=== PATIENT | male | born 1950 | race Caucasian/White ===

== ENCOUNTER 2016-08-03 17:26 | Inpatient (IN) | payer BC, OTHER ==
[~2016-08-03] VITALS: Ht 182.9 cm; Wt 157.9 kg
[~2016-08-03 17:26] MED LIST: ADVAIR 500/501 DISK IH; ADVAIR HFA120 INHAL1 IH; ADVAIR HFA120 INHALA IH; ALLOPURINOL300 MG PO; AMBIEN5 MG PO; ATARAX,VISTARIL25 MG PO; ATORVASTATIN CA20 MG PO; BACTRIM,SEPT1 TABLET PO; BUMETANIDE1 MG PO; BUMETANIDE2 MG PO; BUMEX2 MG PO; CARDIZEM CD,CA180 MG PO; CARDIZEM CD360 MG PO; CARDIZEM120 MG PO; CARDIZEM90 MG PO; CARTIA XT180 MG PO; COLACE100 MG PO; COUMADIN1 MG PO; COUMADIN5 MG PO; COUMADIN6 MG PO; COUMADIN7.5 MG PO; CYANOCOBAL1000 MCG/2 IM; DALIRESP500 MCG PO; DECARA50000 UNIT PO; DOCUSATE SODIU100 MG PO; ERGOCALCIF50000 UNIT PO; HYDROCODON-ACE1 EAC8 PO; K-DUR20 MEQ PO; K-TAB10 MEQ PO; KLOR-CON M2020 MEQ PO; LASIX40 MG PO; LASIX80 MG PO; LIPITOR20 MG PO; LOPRESSOR100 M1 PO; LOPRESSOR25 MG PO; LOVENOX40 MG/0.4 SC; METOLAZONE5 MG PO; METOPROLOL TART25 MG PO; MILK OF MAGNESI10 ML PO; NICODERM CQ1 EAC1 TD; NICODERM CQ1 EAC2 TD; OMEPRAZOLE20 MG PO; OXYCODONE-APAP1 EAC6 PO; PANTOPRAZOLE SO40 MG PO; PERCOCET 7.51 TABLET PO; POLYETHYLENE GL17 GM PO; PREDNISONE10 MG PO; PREDNISONE20 MG PO; PROTONIX40 MG PO; RESTORIL15 MG PO; ROXICET 5-3251 EACH PO; SENNA8.6 MG PO; SENOKOT S,PE1 TABLET PO; SPIRIVA1 INHALATI IH; SPIRONOLACTONE50 MG PO; TEMAZEPAM15 MG PO; THEO-24 100 MG100 MG PO; THEO-24200 MG PO; THEOCHRON200 MG PO; TYLENOL REGULA325 MG PO; XANAX0.25 MG PO; XANAX0.5 MG PO; XARELTO20 MG PO; XOPENEX1.25 MG/0.; XOPENEX1.25 MG/3 IH; Xanax PO; ZYLOPRIM150 MG PO; ZYLOPRIM300 MG PO
[2016-08-03 17:46] LABS: BASE EXCESS 11.3 mEq/L (-3 to +3); BICARBONATE 39.2 mEq/L (22-26); CARBOXY HGB 2.4 % (0-5); COMMENTS - BLOOD GASES A+C+; DEVICE NRBM; FI02 100 %; METHEMOGLOBIN 1.2 % (0-1.5); O2 FLOW 15 L/MIN; PCO2 71 mm Hg (35-45); PO2 95 mm Hg (80-100); SITE LR; pH 7.35 (7.35-7.45)
[2016-08-03 18:17] LABS: HEMATOCRIT 38.1 % (38.0-50.0); MCH 21.4 PG (29.0-34.0); MCHC 26.5 G/DL (30.0-36.0); MCV 80.7 FL (86-99); MEAN PLAT.VOLUME 9.7 uM^3 (9.0-12.4); PLATELET COUNT 245 K/uL (156-360); RBC DIS.WIDTH-CV 20.5 % (11.8-14.6); RBC DIS.WIDTH-SD 58.2 % (39-53); RED BLOOD COUNT 4.72 M/uL (4.00-5.50); WHITE BLOOD COUNT 13.4 K/uL (4.1-10.2)
[2016-08-03 18:29] LABS: CHLORIDE 90 mEq/L (99-109); POTASSIUM 3.4 mEq/L (3.7-5.4); SODIUM 139 mEq/L (136-147)
[2016-08-03 18:31] LABS: GLUCOSE 136 mg/dL (70-99)
[2016-08-03 18:33] LABS: ANION GAP 16 MEQ/L (2-14)
[2016-08-03 18:35] LABS: GFR ESTIMATE (CALCULATED) 32 mL/min/
[2016-08-03 18:36] LABS: UREA NITROGEN (BUN) 44 mg/dL (9-23)
[2016-08-03 18:38] LABS: TROP-I INTERPRETATION NEGATIVE; TROPONIN-I 0.03 ng/mL (0.0-0.30)
[2016-08-03] MEDS ORDERED: K-DUR20 MEQ PO (21:59)
[2016-08-03] MEDS ORDERED: ERGOCALCIF50000 UNIT PO (22:03)
[2016-08-03] MEDS ORDERED: CARDIZEM CD,CA240 MG PO (22:09)
[2016-08-03] MEDS ORDERED: COUMADIN5 MG PO ×2 (22:11→22:14)
[2016-08-03] MEDS ORDERED: TEMAZEPAM15 MG PO (22:15)
[2016-08-03 22:50] LABS: ADD MIUA? NO; BILIRUBIN NEGATIVE; BLOOD NEGATIVE; COLOR YELLOW ((YELLOW)); GLUCOSE (STRIP) NEGATIVE; KETONES NEGATIVE; LEUKOCYTES NEGATIVE; NITRITE NEGATIVE; PROTEIN (STRIP) 30; SPECIFIC GRAVITY 1.012 (1.000-1.030)
[2016-08-03 23:11] LABS: INTER. NORMALIZED RATIO 1.5; PROTHROMBIN TIME 15.2 (9.2-11.2)
[2016-08-04] VITALS (7 sets, daily range): BP systolic 99–118; BP diastolic 56–71
[2016-08-04 06:39] LABS: INTER. NORMALIZED RATIO 1.4; PROTHROMBIN TIME 14.1 (9.2-11.2)
[2016-08-04 06:56] LABS: ANION GAP 11 MEQ/L (2-14); CHLORIDE 88 MEQ/L (99-109); GFR ESTIMATE (CALCULATED) 34 mL/min/; GLUCOSE 194 mg/dL (70-99); POTASSIUM 3.3 MEQ/L (3.7-5.4); SAMPLE HEMOLYSIS CHECK 0; SAMPLE ICTERIC CHECK 0; SAMPLE LIPEMIA CHECK 0; SODIUM 135 MEQ/L (136-147); UREA NITROGEN (BUN) 43 mg/dL (9-23)
[2016-08-04 07:01] LABS: Estimated Average Glucose 120 mg/dL (70-123); HEMOGLOBIN A1c (GLYCOHEMOGLOB) 5.8 % HGB (Below 5.7)
[2016-08-04 07:07] LABS: EOSINOPHIL (%) 0 % (0-5); HEMATOCRIT 35.4 % (38.0-50.0); IMMATURE GRANULOCYTE (%) 0.1 % (0.0-0.7); LYMPHOCYTE COUNT 0.3 K/uL (1.0-2.8); MCH 20.9 PG (29.0-34.0); MCV 80.3 FL (86-99); MEAN PLAT.VOLUME 9.8 uM^3 (9.0-12.4); MONOCYTE (%) 1.2 % (3-12); MONOCYTE COUNT 0.1 K/uL (0-0.8); NEUTROPHIL (%) 95.5 % (45-76); NEUTROPHIL COUNT 8.1 K/uL (1.8-6.4); PLATELET COUNT 183 K/uL (156-360); RBC DIS.WIDTH-CV 20.1 % (11.8-14.6); RBC DIS.WIDTH-SD 58.1 % (39-53); RED BLOOD COUNT 4.41 M/uL (4.00-5.50)
[2016-08-04 07:10] LABS: WHITE BLOOD COUNT 8.5 K/uL (4.1-10.2)
[2016-08-04 08:19] LABS: HEMATOLOGY COMMENT 1 SMEAR COMPATIBLE; PLAT.SUFFICIENCY ADEQUATE; USER ID CL
[2016-08-05 03:50] VITALS: BP 122/63
[2016-08-05 06:47] LABS: INTER. NORMALIZED RATIO 1.4; PROTHROMBIN TIME 14.4 (9.2-11.2)
[2016-08-05 09:00] VITALS: BP 112/68
[2016-08-05 13:18] VITALS: BP 120/59
[2016-08-05 16:00] VITALS: BP 124/61
[2016-08-05 19:09] VITALS: BP 114/75
[2016-08-06] VITALS (8 sets, daily range): BP systolic 98–138; BP diastolic 55–79
[2016-08-06 06:36] LABS: INTER. NORMALIZED RATIO 1.4; PROTHROMBIN TIME 14.9 (9.2-11.2)
[2016-08-06 19:01] LABS: ANION GAP 11 MEQ/L (2-14); CHLORIDE 88 MEQ/L (99-109); GFR ESTIMATE (CALCULATED) 34 mL/min/; GLUCOSE 161 mg/dL (70-99); POTASSIUM 3.3 MEQ/L (3.7-5.4); SAMPLE HEMOLYSIS CHECK 0; SAMPLE ICTERIC CHECK 0; SAMPLE LIPEMIA CHECK 0; SODIUM 135 MEQ/L (136-147); UREA NITROGEN (BUN) 48 mg/dL (9-23)
[2016-08-07 03:51] VITALS: BP 116/60
[2016-08-07 07:22] LABS: INTER. NORMALIZED RATIO 1.5; PROTHROMBIN TIME 15.9 (9.2-11.2)
[2016-08-07 07:31] LABS: ANION GAP 10 MEQ/L (2-14); CHLORIDE 89 MEQ/L (99-109); GFR ESTIMATE (CALCULATED) 38 mL/min/; GLUCOSE 158 mg/dL (70-99); POTASSIUM 2.9 MEQ/L (3.7-5.4); SAMPLE HEMOLYSIS CHECK 0; SAMPLE ICTERIC CHECK 0; SAMPLE LIPEMIA CHECK 0; SODIUM 138 MEQ/L (136-147); UREA NITROGEN (BUN) 49 mg/dL (9-23)
[2016-08-07 07:48] LABS: EOSINOPHIL (%) 7.1 % (0-5); EOSINOPHIL COUNT 0.8 K/uL (0-0.3); HEMATOCRIT 33.3 % (38.0-50.0); IMMATURE GRANULOCYTE (%) 0.3 % (0.0-0.7); MCH 21.4 PG (29.0-34.0); MCHC 26.4 G/DL (30.0-36.0); MEAN PLAT.VOLUME 9.6 uM^3 (9.0-12.4); MONOCYTE (%) 3.1 % (3-12); MONOCYTE COUNT 0.4 K/uL (0-0.8); NEUTROPHIL (%) 81.1 % (45-76); NEUTROPHIL COUNT 9.3 K/uL (1.8-6.4); PLATELET COUNT 171 K/uL (156-360); RBC DIS.WIDTH-CV 20.3 % (11.8-14.6); RED BLOOD COUNT 4.11 M/uL (4.00-5.50); WHITE BLOOD COUNT 11.5 K/uL (4.1-10.2)
[2016-08-07 07:50] VITALS: BP 120/63
[2016-08-07 08:10] LABS: HEMATOLOGY COMMENT 1 SMEAR COMPATIBLE; USER ID CCL
[2016-08-07 11:29] VITALS: BP 114/69
[2016-08-07 15:49] VITALS: BP 120/62
[2016-08-07 19:21] VITALS: BP 126/74
[2016-08-07 23:04] VITALS: BP 115/66
[2016-08-08 02:54] VITALS: BP 116/55
[2016-08-08 06:32] LABS: HEMATOCRIT 34.7 % (38.0-50.0); MCH 20.9 PG (29.0-34.0); MCHC 25.9 G/DL (30.0-36.0); MCV 80.7 FL (86-99); MEAN PLAT.VOLUME 9.7 uM^3 (9.0-12.4); PLATELET COUNT 168 K/uL (156-360); RBC DIS.WIDTH-CV 20.1 % (11.8-14.6); RBC DIS.WIDTH-SD 58.3 % (39-53); WHITE BLOOD COUNT 12.9 K/uL (4.1-10.2)
[2016-08-08 06:45] LABS: INTER. NORMALIZED RATIO 1.7; PROTHROMBIN TIME 17.1 (9.2-11.2)
[2016-08-08 06:58] LABS: ANION GAP ND MEQ/L (2-14); CHLORIDE 89 MEQ/L (99-109); GFR ESTIMATE (CALCULATED) 41 mL/min/; SAMPLE HEMOLYSIS CHECK 0; SAMPLE ICTERIC CHECK 0; SAMPLE LIPEMIA CHECK 0; SODIUM 140 MEQ/L (136-147); UREA NITROGEN (BUN) 49 mg/dL (9-23)
[2016-08-08 06:59] LABS: CARBON DIOXIDE (BICARBONATE) > 40.0 MEQ/L (20-31); GLUCOSE 109 mg/dL (70-99); POTASSIUM 3.7 MEQ/L (3.7-5.4)
[2016-08-08 07:36] LABS: HEMATOLOGY COMMENT 1 SMEAR COMPATIBLE; IMMATURE GRANULOCYTE (%) 0.3 % (0.0-0.7); LYMPHOCYTE COUNT 0.8 K/uL (1.0-2.8); MONOCYTE (%) 3.6 % (3-12); MONOCYTE COUNT 0.5 K/uL (0-0.8); NEUTROPHIL (%) 81.6 % (45-76); NEUTROPHIL COUNT 10.5 K/uL (1.8-6.4); USER ID CCL
[2016-08-08 08:12] VITALS: BP 113/62
[2016-08-08 16:30] VITALS: BP 138/79
[2016-08-08 19:01] VITALS: BP 128/68
[2016-08-08 22:52] VITALS: BP 121/75
[2016-08-09 03:05] VITALS: BP 107/65
[2016-08-09 07:31] LABS: INTER. NORMALIZED RATIO 1.8; PROTHROMBIN TIME 18.4 (9.2-11.2)
[2016-08-09 07:41] VITALS: BP 108/68
[2016-08-09 16:05] VITALS: BP 113/72
[2016-08-09 18:28] LABS: HEMATOCRIT 34.5 % (38.0-50.0); MCH 21.3 PG (29.0-34.0); MCHC 26.4 G/DL (30.0-36.0); MCV 80.6 FL (86-99); MEAN PLAT.VOLUME 9.4 uM^3 (9.0-12.4); PLATELET COUNT 143 K/uL (156-360); RBC DIS.WIDTH-CV 20.2 % (11.8-14.6); RBC DIS.WIDTH-SD 59.3 % (39-53); RED BLOOD COUNT 4.28 M/uL (4.00-5.50); WHITE BLOOD COUNT 15.1 K/uL (4.1-10.2)
[2016-08-09 18:29] VITALS: BP 123/66
[2016-08-09 18:50] LABS: ANION GAP 9 MEQ/L (2-14); CHLORIDE 87 MEQ/L (99-109); GFR ESTIMATE (CALCULATED) 43 mL/min/; POTASSIUM 3.2 MEQ/L (3.7-5.4); SAMPLE HEMOLYSIS CHECK 0; SAMPLE ICTERIC CHECK 0; SAMPLE LIPEMIA CHECK 0; SODIUM 133 MEQ/L (136-147); UREA NITROGEN (BUN) 47 mg/dL (9-23)
[2016-08-09 18:58] LABS: GLUCOSE 228 mg/dL (70-99)
[2016-08-09 23:01] VITALS: BP 105/62
[2016-08-10 03:48] VITALS: BP 118/59
[2016-08-10 06:34] LABS: INTER. NORMALIZED RATIO 1.8; PROTHROMBIN TIME 18.2 (9.2-11.2)
[2016-08-10 09:00] VITALS: BP 126/60
[2016-08-10 12:00] VITALS: BP 126/67
[2016-08-10 16:00] VITALS: BP 126/60
[2016-08-10 19:35] VITALS: BP 111/59
[2016-08-10 22:26] VITALS: BP 106/62
[2016-08-11 02:41] VITALS: BP 109/57
[2016-08-11 07:28] LABS: INTER. NORMALIZED RATIO 1.7; PROTHROMBIN TIME 17.4 (9.2-11.2)
[2016-08-11 08:24] VITALS: BP 116/55
[2016-08-11 11:10] VITALS: BP 118/61; BP 147/93
[2016-08-11 15:25] VITALS: BP 117/64
[2016-08-12 00:12] VITALS: BP 123/87
[2016-08-12 03:55] VITALS: BP 124/74
[2016-08-12 07:44] LABS: HEMATOCRIT 34.3 % (38.0-50.0); MCH 21.2 PG (29.0-34.0); MCHC 26.2 G/DL (30.0-36.0); MCV 80.9 FL (86-99); MEAN PLAT.VOLUME 9.5 uM^3 (9.0-12.4); NRBC (%) 0.1 /100 WBC (0-0); PLATELET COUNT 161 K/uL (156-360); RBC DIS.WIDTH-CV 20.2 % (11.8-14.6); RBC DIS.WIDTH-SD 59.9 % (39-53); RED BLOOD COUNT 4.24 M/uL (4.00-5.50); WHITE BLOOD COUNT 12.2 K/uL (4.1-10.2)
[2016-08-12 07:51] LABS: EOSINOPHIL (%) 0.5 % (0-5); EOSINOPHIL COUNT 0.1 K/uL (0-0.3); IMMATURE GRANULOCYTE (%) 0.4 % (0.0-0.7); IMMATURE GRANULOCYTE COUNT 0.1 K/uL; LYMPHOCYTE COUNT 1.2 K/uL (1.0-2.8); MONOCYTE COUNT 0.5 K/uL (0-0.8); NEUTROPHIL (%) 85.4 % (45-76); NEUTROPHIL COUNT 10.5 K/uL (1.8-6.4)
[2016-08-12 07:55] LABS: INTER. NORMALIZED RATIO 1.9; PROTHROMBIN TIME 20.2 (9.2-11.2)
[2016-08-12 08:09] VITALS: BP 110/63
[2016-08-12 08:25] LABS: ANION GAP ND MEQ/L (2-14); CHLORIDE 87 MEQ/L (99-109); GFR ESTIMATE (CALCULATED) 46 mL/min/; GLUCOSE 140 mg/dL (70-99); POTASSIUM 3.3 MEQ/L (3.7-5.4); SAMPLE HEMOLYSIS CHECK 0; SAMPLE ICTERIC CHECK 0; SAMPLE LIPEMIA CHECK 0; SODIUM 138 MEQ/L (136-147); UREA NITROGEN (BUN) 48 mg/dL (9-23)
[2016-08-12 08:29] LABS: CARBON DIOXIDE (BICARBONATE) > 40.0 MEQ/L (20-31)
[2016-08-12 15:32] VITALS: BP 122/71
[2016-08-12 23:18] VITALS: BP 121/68
[2016-08-13 05:58] LABS: INTER. NORMALIZED RATIO 1.9; PROTHROMBIN TIME 19.5 (9.2-11.2)
[2016-08-13 08:03] VITALS: BP 106/57
[2016-08-13 11:33] LABS: HEMATOCRIT 36.6 % (38.0-50.0); MCH 21.8 PG (29.0-34.0); MCHC 26.5 G/DL (30.0-36.0); MCV 82.2 FL (86-99); MEAN PLAT.VOLUME 9.7 uM^3 (9.0-12.4); RBC DIS.WIDTH-CV 20.4 % (11.8-14.6); RBC DIS.WIDTH-SD 61.6 % (39-53); RED BLOOD COUNT 4.45 M/uL (4.00-5.50)
[2016-08-13 11:36] LABS: PLATELET COUNT 211 K/uL (156-360)
[2016-08-13 12:15] LABS: ALKALINE PHOSPHATASE 98 IU/L (3-129); AMYLASE 68 IU/L (1-118); ANION GAP ND MEQ/L (2-14); CHLORIDE 85 MEQ/L (99-109); GFR ESTIMATE (CALCULATED) 54 mL/min/; GLUCOSE 146 mg/dL (70-99); LIPASE 107 U/L (1.0-51.0); POTASSIUM 3.3 MEQ/L (3.7-5.4); SAMPLE HEMOLYSIS CHECK 0; SAMPLE ICTERIC CHECK 0; SAMPLE LIPEMIA CHECK 0; TOTAL BILIRUBIN 1.1 MG/DL (0.0-1.0); UREA NITROGEN (BUN) 48 mg/dL (9-23)
[2016-08-13 12:30] LABS: CARBON DIOXIDE (BICARBONATE) > 40.0 MEQ/L (20-31); SODIUM 145 MEQ/L (136-147)
[2016-08-13 12:50] LABS: EOSINOPHIL (%) 1.9 % (0-5); EOSINOPHIL COUNT 0.3 K/uL (0-0.3); HEMATOLOGY COMMENT 1 SMEAR COMPATIBLE; IMMATURE GRANULOCYTE (%) 0.2 % (0.0-0.7); MONOCYTE (%) 3.7 % (3-12); MONOCYTE COUNT 0.6 K/uL (0-0.8); NEUTROPHIL (%) 81.8 % (45-76); NEUTROPHIL COUNT 13.1 K/uL (1.8-6.4); PLAT.SUFFICIENCY ADEQUATE; USER ID STC
[2016-08-13 17:46] VITALS: BP 140/72
[2016-08-14 06:57] LABS: PROTHROMBIN TIME 20.8 (9.2-11.2)
[2016-08-14 07:45] VITALS: BP 116/68
[2016-08-14 11:28] VITALS: BP 131/73
[2016-08-14 16:17] VITALS: BP 136/80
[2016-08-14 23:09] VITALS: BP 127/72
[2016-08-15 09:00] LABS: HEMATOCRIT 36.8 % (38.0-50.0); MCH 21.4 PG (29.0-34.0); MCHC 26.1 G/DL (30.0-36.0); MCV 82.1 FL (86-99); MEAN PLAT.VOLUME 9.7 uM^3 (9.0-12.4); PLATELET COUNT 175 K/uL (156-360); RBC DIS.WIDTH-CV 21.1 % (11.8-14.6); RBC DIS.WIDTH-SD 62.5 % (39-53); RED BLOOD COUNT 4.48 M/uL (4.00-5.50); WHITE BLOOD COUNT 15.7 K/uL (4.1-10.2)
[2016-08-15 09:15] LABS: INTER. NORMALIZED RATIO 2.5; PROTHROMBIN TIME 26.2 (9.2-11.2)
[2016-08-15 09:18] VITALS: BP 126/82
[2016-08-15 09:39] LABS: ANION GAP ND MEQ/L (2-14); CHLORIDE 87 MEQ/L (99-109); GFR ESTIMATE (CALCULATED) 43 mL/min/; GLUCOSE 129 mg/dL (70-99); POTASSIUM 3.1 MEQ/L (3.7-5.4); SAMPLE HEMOLYSIS CHECK 0; SAMPLE ICTERIC CHECK 0; SAMPLE LIPEMIA CHECK 0; SODIUM 142 MEQ/L (136-147); UREA NITROGEN (BUN) 63 mg/dL (9-23)
[2016-08-15 09:42] LABS: CARBON DIOXIDE (BICARBONATE) > 40.0 MEQ/L (20-31)
[2016-08-15 10:34] LABS: EOSINOPHIL COUNT 0.8 K/uL (0-0.3); HEMATOLOGY COMMENT 1 SMEAR COMPATIBLE; IMMATURE GRANULOCYTE (%) 0.4 % (0.0-0.7); IMMATURE GRANULOCYTE COUNT 0.1 K/uL; LYMPHOCYTE COUNT 0.8 K/uL (1.0-2.8); MONOCYTE (%) 7.7 % (3-12); MONOCYTE COUNT 1.2 K/uL (0-0.8); NEUTROPHIL (%) 81.5 % (45-76); NEUTROPHIL COUNT 12.8 K/uL (1.8-6.4); PLAT.SUFFICIENCY ADEQUATE
[2016-08-15 16:30] VITALS: BP 129/73
[2016-08-15 23:00] VITALS: BP 112/70
[2016-08-16 03:00] VITALS: BP 112/74
[2016-08-16 06:59] LABS: INTER. NORMALIZED RATIO 3.9
[2016-08-16 07:06] LABS: ANION GAP 9 MEQ/L (2-14); CHLORIDE 86 MEQ/L (99-109); GFR ESTIMATE (CALCULATED) 36 mL/min/; GLUCOSE 136 mg/dL (70-99); POTASSIUM 3.5 MEQ/L (3.7-5.4); SAMPLE HEMOLYSIS CHECK 0; SAMPLE ICTERIC CHECK 0; SAMPLE LIPEMIA CHECK 0; SODIUM 135 MEQ/L (136-147); UREA NITROGEN (BUN) 66 mg/dL (9-23)
[2016-08-16 07:11] VITALS: BP 105/64
[2016-08-16 15:27] VITALS: BP 103/61
[2016-08-16 16:28] LABS: IRON 42 MCG/DL (35-150); URIC ACID 11.4 mg/dL (3.1-9.2)
[2016-08-16 22:53] VITALS: BP 101/64
[2016-08-17 04:33] LABS: CHLORIDE 87 mEq/L (99-109); POTASSIUM 3.4 mEq/L (3.7-5.4); SODIUM 134 mEq/L (136-147)
[2016-08-17 04:35] LABS: GLUCOSE 127 mg/dL (70-99)
[2016-08-17 04:37] LABS: ANION GAP 9 MEQ/L (2-14)
[2016-08-17 04:39] LABS: GFR ESTIMATE (CALCULATED) 31 mL/min/
[2016-08-17 04:40] LABS: UREA NITROGEN (BUN) 72 mg/dL (9-23)
[2016-08-17 04:42] LABS: URIC ACID 12.1 mg/dL (3.1-9.2)
[2016-08-17 04:43] LABS: INTER. NORMALIZED RATIO 5.3; PROTHROMBIN TIME 56.8 (9.2-11.2)
[2016-08-17 07:27] VITALS: BP 118/61
[2016-08-17 08:41] LABS: INTACT PARATHYROID HORMONE 106 pg/mL (10-69)
[2016-08-17 15:38] VITALS: BP 104/57
[2016-08-17 23:39] VITALS: BP 112/63
[2016-08-18 06:40] LABS: PROTHROMBIN TIME 42.2 (9.2-11.2)
[2016-08-18 06:43] LABS: ANION GAP ND MEQ/L (2-14); CHLORIDE 85 MEQ/L (99-109); GFR ESTIMATE (CALCULATED) 38 mL/min/; GLUCOSE 103 mg/dL (70-99); SAMPLE HEMOLYSIS CHECK 0; SAMPLE ICTERIC CHECK 0; SAMPLE LIPEMIA CHECK 0; SODIUM 139 MEQ/L (136-147); UREA NITROGEN (BUN) 55 mg/dL (9-23)
[2016-08-18 06:51] LABS: POTASSIUM 2.7 MEQ/L (3.7-5.4)
[2016-08-18 06:52] LABS: CARBON DIOXIDE (BICARBONATE) > 40.0 MEQ/L (20-31)
[2016-08-18 07:12] VITALS: BP 128/70
[2016-08-18 11:41] VITALS: BP 138/60
[2016-08-18 15:08] VITALS: BP 109/65
[2016-08-18 23:08] VITALS: BP 130/70
[2016-08-19 05:30] LABS: HEMATOCRIT 33.5 % (38.0-50.0); MCH 22.4 PG (29.0-34.0); MCHC 27.8 G/DL (30.0-36.0); MCV 80.7 FL (86-99); MEAN PLAT.VOLUME 10.2 uM^3 (9.0-12.4); PLATELET COUNT 184 K/uL (156-360); RBC DIS.WIDTH-CV 21.7 % (11.8-14.6); RBC DIS.WIDTH-SD 62.3 % (39-53); RED BLOOD COUNT 4.15 M/uL (4.00-5.50); WHITE BLOOD COUNT 13.1 K/uL (4.1-10.2)
[2016-08-19 06:08] LABS: ANION GAP 8 MEQ/L (2-14); CHLORIDE 87 MEQ/L (99-109); GFR ESTIMATE (CALCULATED) 38 mL/min/; GLUCOSE 108 mg/dL (70-99); SAMPLE HEMOLYSIS CHECK 0; SAMPLE ICTERIC CHECK 0; SAMPLE LIPEMIA CHECK 0; SODIUM 133 MEQ/L (136-147); UREA NITROGEN (BUN) 52 mg/dL (9-23); URIC ACID 12.2 mg/dL (3.1-9.2)
[2016-08-19 06:19] LABS: POTASSIUM 3.5 MEQ/L (3.7-5.4)
[2016-08-19 06:23] LABS: INTER. NORMALIZED RATIO 2.9; PROTHROMBIN TIME 30.3 (9.2-11.2)
[2016-08-19 07:26] VITALS: BP 103/58
[2016-08-19] MEDS ORDERED: SENNA LAX8.6 MG PO (09:23)
[2016-08-19] MEDS ORDERED: BISAC-EVAC10 MG PR (09:23)
[2016-08-19] MEDS ORDERED: ENDOCET 5-3251 EACH PO (09:23)
[2016-08-19] MEDS ORDERED: DOCUSATE SODIU100 MG PO (09:23)
[2016-08-19] MEDS ORDERED: K-DUR20 MEQ PO (09:23)
[2016-08-19] MEDS ORDERED: ALLOPURINOL100 MG PO (09:23)
[2016-08-19] MEDS ORDERED: COUMADIN1 MG PO (09:23)
[2016-08-19] MEDS ORDERED: ZOLPIDEM TARTRAT5 MG PO (09:23)
[2016-08-19] MEDS ORDERED: DUONEB 2.5-0.5 M3 ML AEROSOL (09:23)
[2016-08-19] MEDS ORDERED: SPIRIVA RESPIMAT4 GM IH (09:23)
[2016-08-19] MEDS ORDERED: PREDNISONE5 MG PO (09:23)
[2016-08-19] MEDS ORDERED: TYLENOL REGULA325 MG PO (09:23)
== END 2016-08-19 12:58 | DRG 190 ==
LOC: EME → EDBD 17:26 → EDOF 22:19 → 4EAST 22:19 → 5EAST 08-06 20:13
PROVIDERS: Emergency Medicine; Internal Medicine; Internal Medicine Nephrology
PROC: 5A09458 Assistance with Respiratory Ventilation, 24-96 Consecutive Hours, Intermittent Positive Airway Pressure (ICD-10-PCS; 2016-08-08)
PROC: 5A09457 Assistance with Respiratory Ventilation, 24-96 Consecutive Hours, Continuous Positive Airway Pressure (ICD-10-PCS; 2016-08-11)
PROC: 0HDLXZZ Extraction of Left Lower Leg Skin, External Approach (ICD-10-PCS; principal; 2016-08-16)
DX: J44.1 Chronic obstructive pulmonary disease with (acute) exacerbation (principal); J18.9 Pneumonia, unspecified organism; J96.91 Respiratory failure, unspecified with hypoxia; I50.32 Chronic diastolic (congestive) heart failure; Z68.43 Body mass index [BMI] 50.0-59.9, adult; N17.9 Acute kidney failure, unspecified; E55.9 Vitamin D deficiency, unspecified; E53.8 Deficiency of other specified B group vitamins; W18.30XA Fall on same level, unspecified, initial encounter; I87.8 Other specified disorders of veins; E66.01 Morbid (severe) obesity due to excess calories; F32.9 Major depressive disorder, single episode, unspecified; Z99.81 Dependence on supplemental oxygen; I48.2 Chronic atrial fibrillation; N18.9 Chronic kidney disease, unspecified; Z79.01 Long term (current) use of anticoagulants; K21.9 Gastro-esophageal reflux disease without esophagitis; E78.5 Hyperlipidemia, unspecified; I12.9 Hypertensive chronic kidney disease with stage 1 through stage 4 chronic kidney disease, or unspecified chronic kidney disease; I87.2 Venous insufficiency (chronic) (peripheral); F41.9 Anxiety disorder, unspecified; M10.9 Gout, unspecified; M25.50 Pain in unspecified joint; G47.33 Obstructive sleep apnea (adult) (pediatric); E87.6 Hypokalemia; R26.2 Difficulty in walking, not elsewhere classified; T45.515A Adverse effect of anticoagulants, initial encounter
CPT/HCPCS: 36600; 71010; 71020; 74020; 76705; 80048; 80053; 80069; 81003; 82150; 82306; 82607; 82803; 83036; 83540; 83690; 83970; 84145 90; 84439; 84443; 84466; 84484; 84550; 85025; 85027; 85610; 87040; 87086; 93005; 93970; 94640; 94640 76; 94644; 94660; 94760; 94799; 97530 GO; 97530 GP; 99202; 99281; 99285; C9113; J0456; J0696; J1940; J2405; J2765; J2930; J3480; J7050; J7512; J7644; Q0177

== ENCOUNTER 2016-09-15 07:36 | Inpatient (IN) | payer BC, OTHER ==
[~2016-09-15] VITALS: Ht 182.9 cm; Wt 155.4 kg
[~2016-09-15 07:36] MED LIST changes: +ALLOPURINOL100 MG PO; +BISAC-EVAC10 MG PR; +CARDIZEM CD,CA240 MG PO; +DUONEB 2.5-0.5 M3 ML AEROSOL; +ENDOCET 5-3251 EACH PO; +PREDNISONE5 MG PO; +SENNA LAX8.6 MG PO; +SPIRIVA RESPIMAT4 GM IH; +ZOLPIDEM TARTRAT5 MG PO
[2016-09-15 08:21] LABS: CHLORIDE 96 mEq/L (99-109); SODIUM 139 mEq/L (136-147)
[2016-09-15 08:22] LABS: GLUCOSE 126 mg/dL (70-99); INTER. NORMALIZED RATIO 1.7; PTT 34.8 (25-32)
[2016-09-15 08:24] LABS: ANION GAP 12 MEQ/L (2-14)
[2016-09-15 08:26] LABS: GFR ESTIMATE (CALCULATED) > 59 mL/min/
[2016-09-15 08:27] LABS: UREA NITROGEN (BUN) 16 mg/dL (9-23)
[2016-09-15 08:32] LABS: HEMATOCRIT 36.4 % (38.0-50.0); MCH 21.5 PG (29.0-34.0); MCHC 26.1 G/DL (30.0-36.0); MCV 82.4 FL (86-99); MEAN PLAT.VOLUME 8.8 uM^3 (9.0-12.4); NRBC (%) 0.2 /100 WBC (0-0); RBC DIS.WIDTH-SD 65.5 % (39-53); RED BLOOD COUNT 4.42 M/uL (4.00-5.50)
[2016-09-15 08:35] LABS: TROP-I INTERPRETATION NEGATIVE; TROPONIN-I 0.09 ng/mL (0.0-0.30)
[2016-09-15 08:44] LABS: PROTHROMBIN TIME 18.1 (9.2-11.2)
[2016-09-15 08:47] LABS: PLATELET COUNT 283 K/uL (156-360); WHITE BLOOD COUNT 24.8 K/uL (4.1-10.2)
[2016-09-15 09:11] LABS: BASE EXCESS 9.8 mEq/L (-3 to +3); BICARBONATE 36.1 mEq/L (22-26); CARBOXY HGB 2.7 % (0-5); COMMENTS - BLOOD GASES NEG A+C+; DEVICE HFNC; METHEMOGLOBIN 1.5 % (0-1.5); O2 FLOW 15 L/MIN; PCO2 57 mm Hg (35-45); PO2 75 mm Hg (80-100); SITE RR; pH 7.41 (7.35-7.45)
[2016-09-15 09:12] LABS: TOTAL RESP RATE 22 resp/min
[2016-09-15 10:26] LABS: BASOPHIL COUNT 0.1 K/uL (0-0.1); EOSINOPHIL (%) 0.3 % (0-5); EOSINOPHIL COUNT 0.1 K/uL (0-0.3); IMMATURE GRANULOCYTE (%) 0.7 % (0.0-0.7); IMMATURE GRANULOCYTE COUNT 0.2 K/uL; INSTRUMENT ABS NEUTROPHIL CT 21.9 K/uL; LYMPHOCYTE COUNT 0.9 K/uL (1.0-2.8); MONOCYTE (%) 6.8 % (3-12); MONOCYTE COUNT 1.7 K/uL (0-0.8); NEUTROPHIL (%) 88.4 % (45-76); NEUTROPHIL COUNT 21.9 K/uL (1.8-6.4)
[2016-09-15 11:08] LABS: ADD MIUA? NO; BILIRUBIN NEGATIVE; BLOOD NEGATIVE; COLOR YELLOW ((YELLOW)); GLUCOSE (STRIP) NEGATIVE; KETONES NEGATIVE; LEUKOCYTES NEGATIVE; NITRITE NEGATIVE; PROTEIN (STRIP) NEGATIVE; UROBILINOGEN 0.2 MG/DL (0.2-1.0)
[2016-09-15] MEDS ORDERED: WARFARIN SODIUM5 MG PO (11:18)
[2016-09-15] MEDS ORDERED: MILK OF MAGN PO (11:21)
[2016-09-15] MEDS ORDERED: ENEMA133 M2 PR (11:21)
[2016-09-15] MEDS ORDERED: PRILOSEC20 MG PO (11:22)
[2016-09-15] MEDS ORDERED: AQUAPHOR W-NAT50 GM TP (11:23)
[2016-09-15] MEDS ORDERED: MIRALAX17 GM PO (11:23)
[2016-09-15] MEDS ORDERED: PROVENTIL,2.5 MG/3 M IH (11:24)
[2016-09-15] MEDS ORDERED: BREO ELLIPTA 21 EACH IH (11:25)
[2016-09-15] MEDS ORDERED: BENADRYL ALLERG25 MG PO (11:25)
[2016-09-15] MEDS ORDERED: BUMEX2 MG PO (11:26)
[2016-09-15] MEDS ORDERED: METOLAZONE5 MG PO (11:26)
[2016-09-15] MEDS ORDERED: PREDNISONE5 MG PO (11:29)
[2016-09-15] MEDS ORDERED: ZYLOPRIM100 MG PO (11:30)
[2016-09-15 14:47] LABS: HDL CHOLESTEROL 29 MG/DL (Desirable>=40); LDL CHOLESTEROL 28 mg/dL (Desirable<100); NON-HDL CHOLESTEROL 41 mg/dL (Desirable<160); SAMPLE HEMOLYSIS CHECK 0; SAMPLE ICTERIC CHECK 0; SAMPLE LIPEMIA CHECK 0; TOTAL CHOLESTEROL 70 mg/dL (Desirable<200); TRIGLYCERIDES 63 MG/DL (Normal: <150); URIC ACID 9.8 mg/dL (3.1-9.2)
[2016-09-15 15:09] LABS: THEOPHYLLINE 5.6 MCG/ML (10-20)
[2016-09-15 17:30] LABS: TROP-I INTERPRETATION NEGATIVE; TROPONIN-I 0.04 ng/mL (0.0-0.30)
[2016-09-16 00:54] LABS: TROP-I INTERPRETATION NEGATIVE; TROPONIN-I 0.02 ng/mL (0.0-0.30)
[2016-09-16 03:05] VITALS: BP 105/60
[2016-09-16 06:39] LABS: ANION GAP 9 MEQ/L (2-14); CHLORIDE 96 MEQ/L (99-109); GFR ESTIMATE (CALCULATED) 54 mL/min/; GLUCOSE 134 mg/dL (70-99); SAMPLE HEMOLYSIS CHECK 0; SAMPLE ICTERIC CHECK 0; SAMPLE LIPEMIA CHECK 0; SODIUM 139 MEQ/L (136-147)
[2016-09-16 06:40] LABS: UREA NITROGEN (BUN) 25 mg/dL (9-23)
[2016-09-16 06:56] LABS: ALKALINE PHOSPHATASE 87 IU/L (3-129); ANION GAP 10 MEQ/L (2-14); CHLORIDE 97 MEQ/L (99-109); GFR ESTIMATE (CALCULATED) 54 mL/min/; GLUCOSE 128 mg/dL (70-99); SAMPLE HEMOLYSIS CHECK 0; SAMPLE ICTERIC CHECK 0; SAMPLE LIPEMIA CHECK 0; SODIUM 140 MEQ/L (136-147); TOTAL BILIRUBIN 0.7 MG/DL (0.0-1.0); UREA NITROGEN (BUN) 24 mg/dL (9-23)
[2016-09-16 06:59] LABS: INTER. NORMALIZED RATIO 2.1; PROTHROMBIN TIME 21.4 (9.2-11.2)
[2016-09-16 07:03] VITALS: BP 97/55
[2016-09-16 07:59] LABS: HEMATOCRIT 31.3 % (38.0-50.0); MCH 21.7 PG (29.0-34.0); MCHC 26.2 G/DL (30.0-36.0); MCV 82.8 FL (86-99); MEAN PLAT.VOLUME 9.5 uM^3 (9.0-12.4); PLATELET COUNT 239 K/uL (156-360); RBC DIS.WIDTH-CV 21.7 % (11.8-14.6); RBC DIS.WIDTH-SD 64.3 % (39-53); RED BLOOD COUNT 3.78 M/uL (4.00-5.50); WHITE BLOOD COUNT 19.7 K/uL (4.1-10.2)
[2016-09-16 09:36] LABS: TROP-I INTERPRETATION NEGATIVE; TROPONIN-I 0.02 ng/mL (0.0-0.30)
[2016-09-16 11:19] VITALS: BP 88/50
[2016-09-16 14:59] VITALS: BP 96/55
[2016-09-16 19:07] VITALS: BP 115/66
[2016-09-16 22:35] VITALS: BP 106/59
[2016-09-17 03:19] VITALS: BP 112/66
[2016-09-17 06:25] LABS: ANION GAP 11 MEQ/L (2-14); CHLORIDE 94 MEQ/L (99-109); GFR ESTIMATE (CALCULATED) > 59 mL/min/; GLUCOSE 122 mg/dL (70-99); SAMPLE HEMOLYSIS CHECK 0; SAMPLE ICTERIC CHECK 0; SAMPLE LIPEMIA CHECK 0; SODIUM 139 MEQ/L (136-147); UREA NITROGEN (BUN) 28 mg/dL (9-23)
[2016-09-17 06:37] LABS: EOSINOPHIL (%) 0.3 % (0-5); HEMATOCRIT 31.8 % (38.0-50.0); IMMATURE GRANULOCYTE (%) 0.6 % (0.0-0.7); IMMATURE GRANULOCYTE COUNT 0.1 K/uL; INSTRUMENT ABS NEUTROPHIL CT 13.8 K/uL; LYMPHOCYTE COUNT 0.5 K/uL (1.0-2.8); MCH 21.6 PG (29.0-34.0); MCHC 25.8 G/DL (30.0-36.0); MCV 83.9 FL (86-99); MEAN PLAT.VOLUME 9.4 uM^3 (9.0-12.4); MONOCYTE (%) 7.1 % (3-12); MONOCYTE COUNT 1.1 K/uL (0-0.8); NEUTROPHIL (%) 88.5 % (45-76); NEUTROPHIL COUNT 13.8 K/uL (1.8-6.4); PLATELET COUNT 235 K/uL (156-360); RBC DIS.WIDTH-SD 65.5 % (39-53); RED BLOOD COUNT 3.79 M/uL (4.00-5.50); WHITE BLOOD COUNT 15.6 K/uL (4.1-10.2)
[2016-09-17 07:14] VITALS: BP 100/58
[2016-09-17 11:13] LABS: INTER. NORMALIZED RATIO 2.4; PROTHROMBIN TIME 24.8 (9.2-11.2)
[2016-09-17 11:31] VITALS: BP 103/59
[2016-09-17 15:13] VITALS: BP 119/68
[2016-09-17 18:47] VITALS: BP 112/62
[2016-09-17 22:51] VITALS: BP 108/59
[2016-09-18 03:30] VITALS: BP 110/56
[2016-09-18 07:03] VITALS: BP 94/54
[2016-09-18 07:05] LABS: HEMATOCRIT 33.1 % (38.0-50.0); MCH 21.7 PG (29.0-34.0); MCV 83.4 FL (86-99); MEAN PLAT.VOLUME 9.5 uM^3 (9.0-12.4); NRBC (%) 0.2 /100 WBC (0-0); PLATELET COUNT 253 K/uL (156-360); RBC DIS.WIDTH-CV 21.6 % (11.8-14.6); RBC DIS.WIDTH-SD 65.3 % (39-53); RED BLOOD COUNT 3.97 M/uL (4.00-5.50)
[2016-09-18 07:12] LABS: INTER. NORMALIZED RATIO 2.5; PROTHROMBIN TIME 26.5 (9.2-11.2)
[2016-09-18 07:25] LABS: ALKALINE PHOSPHATASE 76 IU/L (3-129); ANION GAP 9 MEQ/L (2-14); CHLORIDE 97 MEQ/L (99-109); GFR ESTIMATE (CALCULATED) 54 mL/min/; GLUCOSE 117 mg/dL (70-99); POTASSIUM 3.9 MEQ/L (3.7-5.4); SAMPLE HEMOLYSIS CHECK 0; SAMPLE ICTERIC CHECK 0; SAMPLE LIPEMIA CHECK 0; SODIUM 141 MEQ/L (136-147); UREA NITROGEN (BUN) 31 mg/dL (9-23)
[2016-09-18 07:36] LABS: TOTAL BILIRUBIN 0.5 MG/DL (0.0-1.0)
[2016-09-18 15:00] VITALS: BP 119/64
[2016-09-18 23:14] VITALS: BP 114/67
[2016-09-19 07:06] VITALS: BP 101/56
[2016-09-19 07:07] LABS: INTER. NORMALIZED RATIO 2.5; PROTHROMBIN TIME 26.1 (9.2-11.2)
[2016-09-19 16:05] VITALS: BP 116/70
[2016-09-19 23:27] VITALS: BP 130/69
[2016-09-20 06:34] LABS: HEMATOCRIT 32.7 % (38.0-50.0); MCH 21.8 PG (29.0-34.0); MCHC 26.3 G/DL (30.0-36.0); MEAN PLAT.VOLUME 9.5 uM^3 (9.0-12.4); NRBC (%) 0.2 /100 WBC (0-0); PLATELET COUNT 226 K/uL (156-360); RBC DIS.WIDTH-CV 21.5 % (11.8-14.6); RBC DIS.WIDTH-SD 63.7 % (39-53); RED BLOOD COUNT 3.94 M/uL (4.00-5.50); WHITE BLOOD COUNT 11.6 K/uL (4.1-10.2)
[2016-09-20 06:38] LABS: ANION GAP 7 MEQ/L (2-14); CHLORIDE 93 MEQ/L (99-109); GFR ESTIMATE (CALCULATED) > 59 mL/min/; GLUCOSE 113 mg/dL (70-99); SAMPLE HEMOLYSIS CHECK 0; SAMPLE ICTERIC CHECK 0; SAMPLE LIPEMIA CHECK 0; SODIUM 135 MEQ/L (136-147); UREA NITROGEN (BUN) 30 mg/dL (9-23)
[2016-09-20 06:43] LABS: INTER. NORMALIZED RATIO 2.1; PROTHROMBIN TIME 21.7 (9.2-11.2)
[2016-09-20 08:13] VITALS: BP 100/59
[2016-09-20 11:41] VITALS: BP 117/62
[2016-09-20 16:12] VITALS: BP 102/59
[2016-09-20 23:44] VITALS: BP 105/68
[2016-09-21 07:02] LABS: INTER. NORMALIZED RATIO 1.8; PROTHROMBIN TIME 18.4 (9.2-11.2)
[2016-09-21 08:46] VITALS: BP 125/68
[2016-09-21 17:47] VITALS: BP 125/81
[2016-09-21 23:06] VITALS: BP 120/67
[2016-09-22 06:47] LABS: INTER. NORMALIZED RATIO 1.9; PROTHROMBIN TIME 19.2 (9.2-11.2)
[2016-09-22 06:48] VITALS: BP 102/59
[2016-09-22 08:03] VITALS: BP 123/36
[2016-09-22 15:06] VITALS: BP 110/61
[2016-09-22 20:40] VITALS: BP 132/85
[2016-09-22 23:01] VITALS: BP 120/71
[2016-09-23 06:57] LABS: INTER. NORMALIZED RATIO 1.9; PROTHROMBIN TIME 19.2 (9.2-11.2)
[2016-09-23 08:00] VITALS: BP 124/90
[2016-09-23 12:27] LABS: ANION GAP ND MEQ/L (2-14); CHLORIDE 93 MEQ/L (99-109); GFR ESTIMATE (CALCULATED) > 59 mL/min/; GLUCOSE 110 mg/dL (70-99); POTASSIUM 3.8 MEQ/L (3.7-5.4); SAMPLE HEMOLYSIS CHECK 0; SAMPLE ICTERIC CHECK 0; SAMPLE LIPEMIA CHECK 0; SODIUM 141 MEQ/L (136-147); UREA NITROGEN (BUN) 35 mg/dL (9-23)
[2016-09-23 12:28] LABS: CARBON DIOXIDE (BICARBONATE) > 40.0 MEQ/L (20-31)
[2016-09-23 15:00] VITALS: BP 108/59
[2016-09-23 22:10] VITALS: BP 122/74
[2016-09-24 06:56] LABS: INTER. NORMALIZED RATIO 1.9; PROTHROMBIN TIME 19.2 (9.2-11.2)
[2016-09-24 08:30] VITALS: BP 122/80
[2016-09-24 11:30] LABS: ANION GAP 8 MEQ/L (2-14); CHLORIDE 95 MEQ/L (99-109); GFR ESTIMATE (CALCULATED) 54 mL/min/; GLUCOSE 116 mg/dL (70-99); POTASSIUM 4.5 MEQ/L (3.7-5.4); SAMPLE HEMOLYSIS CHECK 0; SAMPLE ICTERIC CHECK 0; SAMPLE LIPEMIA CHECK 0; SODIUM 143 MEQ/L (136-147); UREA NITROGEN (BUN) 37 mg/dL (9-23)
[2016-09-24 15:00] VITALS: BP 134/79
[2016-09-24 20:05] VITALS: BP 125/73
[2016-09-24 22:28] VITALS: BP 129/68
[2016-09-25 06:54] LABS: INTER. NORMALIZED RATIO 1.7; PROTHROMBIN TIME 17.1 (9.2-11.2)
[2016-09-25 07:33] VITALS: BP 110/63
[2016-09-25 15:00] VITALS: BP 108/62
[2016-09-25 22:35] VITALS: BP 119/64
[2016-09-26 07:16] LABS: INTER. NORMALIZED RATIO 1.7; PROTHROMBIN TIME 17.1 (9.2-11.2)
[2016-09-26 07:23] VITALS: BP 114/69
[2016-09-26 15:19] VITALS: BP 137/72
[2016-09-26 23:59] VITALS: BP 120/61
[2016-09-27 07:10] LABS: INTER. NORMALIZED RATIO 1.6
[2016-09-27 07:16] LABS: ANION GAP 8 MEQ/L (2-14); CHLORIDE 97 MEQ/L (99-109); GFR ESTIMATE (CALCULATED) 50 mL/min/; GLUCOSE 163 mg/dL (70-99); HEMATOCRIT 33.5 % (38.0-50.0); MCH 21.7 PG (29.0-34.0); MCHC 26.6 G/DL (30.0-36.0); MCV 81.7 FL (86-99); NRBC (%) 0.2 /100 WBC (0-0); RBC DIS.WIDTH-CV 21.6 % (11.8-14.6); RBC DIS.WIDTH-SD 63.6 % (39-53); SAMPLE HEMOLYSIS CHECK 0; SAMPLE ICTERIC CHECK 0; SAMPLE LIPEMIA CHECK 0; SODIUM 139 MEQ/L (136-147); UREA NITROGEN (BUN) 44 mg/dL (9-23); WHITE BLOOD COUNT 11.6 K/uL (4.1-10.2)
[2016-09-27 07:17] LABS: POTASSIUM 3.4 MEQ/L (3.7-5.4)
[2016-09-27 08:12] LABS: EOSINOPHIL (%) 0.6 % (0-5); EOSINOPHIL COUNT 0.1 K/uL (0-0.3); IMMATURE GRANULOCYTE (%) 2.1 % (0.0-0.7); IMMATURE GRANULOCYTE COUNT 0.2 K/uL; INSTRUMENT ABS NEUTROPHIL CT 9.5 K/uL; MEAN PLAT.VOLUME 9.9 uM^3 (9.0-12.4); MONOCYTE (%) 6.3 % (3-12); MONOCYTE COUNT 0.7 K/uL (0-0.8); NEUTROPHIL COUNT 9.5 K/uL (1.8-6.4); PLAT.SUFFICIENCY DECREASED; PLATELET COUNT 144 K/uL (156-360)
[2016-09-27 08:47] VITALS: BP 128/81
[2016-09-27] MEDS ORDERED: ALLOPURINOL100 MG PO (14:43)
[2016-09-27] MEDS ORDERED: THEOPHYLLINE400 MG PO (14:44)
[2016-09-27] MEDS ORDERED: Zeasorb Antifungal T TP (14:45)
== END 2016-09-27 17:50 | DRG 190 ==
LOC: EME 07:36 → EDOF 10:52 → 5EAST 10:52
PROVIDERS: Emergency Medicine; Internal Medicine; Internal Medicine Cardiovascular Disease; Internal Medicine Pulmonary Disease; Radiology Diagnostic Radiology
PROC: 5A09357 Assistance with Respiratory Ventilation, Less than 24 Consecutive Hours, Continuous Positive Airway Pressure (ICD-10-PCS; principal; 2016-09-15)
PROC: 0HDLXZZ Extraction of Left Lower Leg Skin, External Approach (ICD-10-PCS; 2016-09-16)
PROC: 0W9F3ZZ Drainage of Abdominal Wall, Percutaneous Approach (ICD-10-PCS; 2016-09-24)
DX: J44.0 Chronic obstructive pulmonary disease with (acute) lower respiratory infection (principal); I50.43 Acute on chronic combined systolic (congestive) and diastolic (congestive) heart failure; J18.9 Pneumonia, unspecified organism; J96.21 Acute and chronic respiratory failure with hypoxia; J44.1 Chronic obstructive pulmonary disease with (acute) exacerbation; I13.0 Hypertensive heart and chronic kidney disease with heart failure and stage 1 through stage 4 chronic kidney disease, or unspecified chronic kidney disease; E66.2 Morbid (severe) obesity with alveolar hypoventilation; Z68.43 Body mass index [BMI] 50.0-59.9, adult; I42.9 Cardiomyopathy, unspecified; L97.829 Non-pressure chronic ulcer of other part of left lower leg with unspecified severity; I83.228 Varicose veins of left lower extremity with both ulcer of other part of lower extremity and inflammation; R18.8 Other ascites; J20.9 Acute bronchitis, unspecified; J96.22 Acute and chronic respiratory failure with hypercapnia; I48.0 Paroxysmal atrial fibrillation; N18.9 Chronic kidney disease, unspecified; Z99.81 Dependence on supplemental oxygen; K21.9 Gastro-esophageal reflux disease without esophagitis; E55.9 Vitamin D deficiency, unspecified; E53.8 Deficiency of other specified B group vitamins; Z74.01 Bed confinement status; E78.5 Hyperlipidemia, unspecified; M10.9 Gout, unspecified; Z87.891 Personal history of nicotine dependence; E88.09 Other disorders of plasma-protein metabolism, not elsewhere classified; D63.1 Anemia in chronic kidney disease; I27.2 Other secondary pulmonary hypertension; I07.1 Rheumatic tricuspid insufficiency; I27.81 Cor pulmonale (chronic)
CPT/HCPCS: 36600; 71010; 71020; 80048; 80048 91; 80053; 80061; 80198; 81003; 82306; 82607; 82803; 83605; 83880; 84439; 84443; 84484; 84550; 85025; 85027; 85610; 85730; 87040; 87070; 87205; 93005; 93306; 94640; 94640 76; 94644; 94660; 94760; 94799; 97530 GO; 97530 GP; 99202; 99281; 99284; J0696; J1100; J1940; J7050; J7512; J7644; Q0177

== ENCOUNTER 2016-12-23 10:39 | Inpatient (IN) | payer OTHER ==
[2016-12-23] VITALS (7 sets, daily range): BP systolic 78–160; BP diastolic 52–138
[~2016-12-23] VITALS: Ht 172.7 cm; Wt 166.5 kg
[~2016-12-23 10:39] MED LIST changes: +AQUAPHOR W-NAT50 GM TP; +BENADRYL ALLERG25 MG PO; +BREO ELLIPTA 21 EACH IH; +ENEMA133 M2 PR; +MILK OF MAGN PO; +MIRALAX17 GM PO; +PRILOSEC20 MG PO; +PROVENTIL,2.5 MG/3 M IH; +THEOPHYLLINE400 MG PO; +WARFARIN SODIUM5 MG PO; +ZYLOPRIM100 MG PO; +Zeasorb Antifungal T TP
[2016-12-23 11:32] LABS: BASOPHIL COUNT 0.1 K/uL (0-0.1); EOSINOPHIL (%) 2.5 % (0-5); EOSINOPHIL COUNT 0.4 K/uL (0-0.3); IMMATURE GRANULOCYTE (%) 1.2 % (0.0-0.7); IMMATURE GRANULOCYTE COUNT 0.2 K/uL; INSTRUMENT ABS NEUTROPHIL CT 13.1 K/uL; MCH 19.9 PG (29.0-34.0); MCHC 26.3 G/DL (30.0-36.0); MEAN PLAT.VOLUME 9.4 uM^3 (9.0-12.4); MONOCYTE (%) 8.8 % (3-12); MONOCYTE COUNT 1.4 K/uL (0-0.8); NEUTROPHIL (%) 80.8 % (45-76); NEUTROPHIL COUNT 13.1 K/uL (1.8-6.4); NRBC (%) 0.7 /100 WBC (0-0); RBC DIS.WIDTH-CV 21.8 % (11.8-14.6); RBC DIS.WIDTH-SD 57.2 % (39-53); RED BLOOD COUNT 5.69 M/uL (4.00-5.50); WHITE BLOOD COUNT 16.2 K/uL (4.1-10.2)
[2016-12-23 11:39] LABS: MCV 75.6 FL (86-99); PLATELET COUNT 368 K/uL (156-360)
[2016-12-23 11:42] LABS: CHLORIDE 86 mEq/L (99-109); POTASSIUM 4.6 mEq/L (3.7-5.4); SODIUM 128 mEq/L (136-147)
[2016-12-23 11:43] LABS: INTER. NORMALIZED RATIO 3.6
[2016-12-23 11:44] LABS: GLUCOSE 150 mg/dL (70-99)
[2016-12-23 11:45] LABS: ANION GAP 15 MEQ/L (2-14); PROTHROMBIN TIME 38.2 (9.2-11.2)
[2016-12-23 11:47] LABS: ALKALINE PHOSPHATASE 130 IU/L (3-129)
[2016-12-23 11:48] LABS: GFR ESTIMATE (CALCULATED) 22 mL/min/
[2016-12-23 11:49] LABS: TROP-I INTERPRETATION NEGATIVE; TROPONIN-I 0.08 ng/mL (0.0-0.30); UREA NITROGEN (BUN) 75 mg/dL (9-23)
[2016-12-23 12:12] LABS: BASE EXCESS 3.4 mEq/L (-3 to +3); CARBOXY HGB 1.4 % (0-5); METHEMOGLOBIN 0.6 % (0-1.5); pH 7.39 (7.35-7.45)
[2016-12-23 12:13] LABS: BICARBONATE 29.1 mEq/L (22-26); COMMENTS - BLOOD GASES A+C+; DEVICE 980; FI02 70 %; MODE NIV; PCO2 48 mm Hg (35-45); PEEP 5 CM/H20; PO2 105 mm Hg (80-100); PRES. SUPPORT 15 CM/H2O; SITE RRA; TOTAL RESP RATE 24 resp/min
[2016-12-23] MEDS ORDERED: SPIRIVA1 INHALATI IH (14:14)
[2016-12-23] MEDS ORDERED: WARFARIN SODIU7.5 MG PO (14:17)
[2016-12-23] MEDS ORDERED: K-DUR20 MEQ PO (14:21)
[2016-12-23] MEDS ORDERED: ALLOPURINOL100 MG PO (14:29)
[2016-12-23] MEDS ORDERED: RESTORIL30 MG PO (14:30)
[2016-12-23] MEDS ORDERED: ALDACTONE25 MG PO (14:31)
[2016-12-23 19:14] LABS: METH RESISTANT S AUREUS PCR POSITIVE (NEGATIVE)
[2016-12-23 19:21] LABS: PROBE CHECK PASS
[2016-12-23 20:38] LABS: BASOPHIL COUNT 0.1 K/uL (0-0.1); EOSINOPHIL (%) 1.7 % (0-5); EOSINOPHIL COUNT 0.3 K/uL (0-0.3); HEMATOCRIT 40.2 % (38.0-50.0); IMMATURE GRANULOCYTE (%) 0.9 % (0.0-0.7); IMMATURE GRANULOCYTE COUNT 0.1 K/uL; INSTRUMENT ABS NEUTROPHIL CT 11.9 K/uL; LYMPHOCYTE COUNT 1.4 K/uL (1.0-2.8); MCH 20.9 PG (29.0-34.0); MCHC 27.6 G/DL (30.0-36.0); MCV 75.6 FL (86-99); MONOCYTE (%) 8.8 % (3-12); MONOCYTE COUNT 1.3 K/uL (0-0.8); NEUTROPHIL COUNT 11.9 K/uL (1.8-6.4); NRBC (%) 0.3 /100 WBC (0-0); PLATELET COUNT 288 K/uL (156-360); RBC DIS.WIDTH-CV 21.7 % (11.8-14.6); RBC DIS.WIDTH-SD 57.1 % (39-53); RED BLOOD COUNT 5.32 M/uL (4.00-5.50); WHITE BLOOD COUNT 15.1 K/uL (4.1-10.2)
[2016-12-23 20:40] LABS: ANION GAP 12 MEQ/L (2-14); CHLORIDE 88 MEQ/L (99-109); MAGNESIUM 1.8 mg/dl (1.3-2.7); POTASSIUM 4.2 MEQ/L (3.7-5.4); SAMPLE HEMOLYSIS CHECK 0; SAMPLE ICTERIC CHECK 0; SAMPLE LIPEMIA CHECK 0; SODIUM 129 MEQ/L (136-147); TOTAL BILIRUBIN 0.9 MG/DL (0.0-1.0)
[2016-12-23 20:41] LABS: INTER. NORMALIZED RATIO 3.7; PROTHROMBIN TIME 39.5 (9.2-11.2); PTT 40.8 (25-32)
[2016-12-23 20:46] LABS: ALKALINE PHOSPHATASE 114 IU/L (3-129); GFR ESTIMATE (CALCULATED) 23 mL/min/; GLUCOSE 123 mg/dL (70-99); UREA NITROGEN (BUN) 74 mg/dL (9-23)
[2016-12-23 23:31] LABS: POINT-OF-CARE METER ID UU14174217
[2016-12-24] VITALS (16 sets, daily range): BP systolic 82–152; BP diastolic 44–113
[2016-12-24 00:01] LABS: ADD MIUA? NO; BILIRUBIN NEGATIVE; BLOOD NEGATIVE; COLOR YELLOW ((YELLOW)); GLUCOSE (STRIP) NEGATIVE; KETONES NEGATIVE; LEUKOCYTES NEGATIVE; NITRITE NEGATIVE; PROTEIN (STRIP) NEGATIVE; SPECIFIC GRAVITY 1.006 (1.000-1.030); UCUL ADDED? NO; UROBILINOGEN 0.2 MG/DL (0.2-1.0)
[2016-12-24 05:22] LABS: BASOPHIL COUNT 0.1 K/uL (0-0.1); EOSINOPHIL (%) 3.1 % (0-5); EOSINOPHIL COUNT 0.5 K/uL (0-0.3); HEMATOCRIT 39.9 % (38.0-50.0); IMMATURE GRANULOCYTE COUNT 0.2 K/uL; INSTRUMENT ABS NEUTROPHIL CT 11.8 K/uL; LYMPHOCYTE COUNT 1.4 K/uL (1.0-2.8); MCHC 26.6 G/DL (30.0-36.0); MCV 75.1 FL (86-99); MEAN PLAT.VOLUME 8.8 uM^3 (9.0-12.4); MONOCYTE (%) 10.7 % (3-12); MONOCYTE COUNT 1.7 K/uL (0-0.8); NEUTROPHIL (%) 75.6 % (45-76); NEUTROPHIL COUNT 11.8 K/uL (1.8-6.4); NRBC (%) 0.6 /100 WBC (0-0); PLATELET COUNT 320 K/uL (156-360); RBC DIS.WIDTH-CV 21.3 % (11.8-14.6); RBC DIS.WIDTH-SD 56.4 % (39-53); RED BLOOD COUNT 5.31 M/uL (4.00-5.50); WHITE BLOOD COUNT 15.6 K/uL (4.1-10.2)
[2016-12-24 05:24] LABS: INTER. NORMALIZED RATIO 3.8; PROTHROMBIN TIME 40.8 (9.2-11.2)
[2016-12-24 05:37] LABS: ALKALINE PHOSPHATASE 106 IU/L (3-129); ANION GAP 12 MEQ/L (2-14); CHLORIDE 88 MEQ/L (99-109); GFR ESTIMATE (CALCULATED) 21 mL/min/; GLUCOSE 153 mg/dL (70-99); POTASSIUM 3.7 MEQ/L (3.7-5.4); SAMPLE HEMOLYSIS CHECK 0; SAMPLE ICTERIC CHECK 0; SAMPLE LIPEMIA CHECK 0; SODIUM 129 MEQ/L (136-147); TOTAL BILIRUBIN 0.8 MG/DL (0.0-1.0); UREA NITROGEN (BUN) 78 mg/dL (9-23)
[2016-12-24 06:54] LABS: Estimated Average Glucose 148 mg/dL (70-123); HEMOGLOBIN A1c (GLYCOHEMOGLOB) 6.8 % HGB (Below 5.7)
[2016-12-24 12:33] LABS: POINT-OF-CARE METER ID UU13113748
[2016-12-24 16:10] LABS: ANION GAP 16 MEQ/L (2-14); CHLORIDE 85 MEQ/L (99-109); GFR ESTIMATE (CALCULATED) 18 mL/min/; GLUCOSE 194 mg/dL (70-99); POTASSIUM 4.3 MEQ/L (3.7-5.4); SAMPLE HEMOLYSIS CHECK 0; SAMPLE ICTERIC CHECK 0; SAMPLE LIPEMIA CHECK 0; SODIUM 127 MEQ/L (136-147); UREA NITROGEN (BUN) 79 mg/dL (9-23)
[2016-12-24 19:12] LABS: POINT-OF-CARE METER ID UU13113748
[2016-12-24 21:13] LABS: ANION GAP 15 MEQ/L (2-14); CHLORIDE 86 MEQ/L (99-109); GFR ESTIMATE (CALCULATED) 18 mL/min/; GLUCOSE 140 mg/dL (70-99); POTASSIUM 4.2 MEQ/L (3.7-5.4); SAMPLE HEMOLYSIS CHECK 0; SAMPLE ICTERIC CHECK 0; SAMPLE LIPEMIA CHECK 0; SODIUM 128 MEQ/L (136-147); UREA NITROGEN (BUN) 82 mg/dL (9-23)
[2016-12-25] VITALS (13 sets, daily range): BP systolic 81–128; BP diastolic 44–96
[2016-12-25 07:43] LABS: GLUCOSE 147 mg/dL (70-99)
[2016-12-25 07:47] LABS: GFR ESTIMATE (CALCULATED) 17 mL/min/
[2016-12-25 07:48] LABS: UREA NITROGEN (BUN) 84 mg/dL (9-23)
[2016-12-25 08:36] LABS: CHLORIDE 86 mEq/L (99-109); POTASSIUM 3.7 mEq/L (3.7-5.4); SODIUM 129 mEq/L (136-147)
[2016-12-25 08:39] LABS: ANION GAP 16 MEQ/L (2-14)
[2016-12-25 10:27] LABS: INTER. NORMALIZED RATIO 2.8; PROTHROMBIN TIME 29.5 (9.2-11.2); PTT 40.1 (25-32)
[2016-12-25 13:02] LABS: ANION GAP 13 MEQ/L (2-14); CHLORIDE 87 MEQ/L (99-109); GFR ESTIMATE (CALCULATED) 18 mL/min/; GLUCOSE 165 mg/dL (70-99); POTASSIUM 4.3 MEQ/L (3.7-5.4); SAMPLE HEMOLYSIS CHECK 0; SAMPLE ICTERIC CHECK 0; SAMPLE LIPEMIA CHECK 0; SODIUM 129 MEQ/L (136-147); UREA NITROGEN (BUN) 86 mg/dL (9-23)
[2016-12-27 06:15] LABS: INTER. NORMALIZED RATIO 1.6; PTT 34.3 (25-32)
[2016-12-27 06:16] LABS: MCH 20.7 PG (29.0-34.0); MCHC 27.8 G/DL (30.0-36.0); MCV 74.3 FL (86-99); MEAN PLAT.VOLUME 8.8 uM^3 (9.0-12.4); NRBC (%) 0.3 /100 WBC (0-0); PLATELET COUNT 319 K/uL (156-360); RBC DIS.WIDTH-CV 21.5 % (11.8-14.6); RBC DIS.WIDTH-SD 55.8 % (39-53); RED BLOOD COUNT 4.98 M/uL (4.00-5.50); WHITE BLOOD COUNT 13.8 K/uL (4.1-10.2)
[2016-12-27 09:18] VITALS: BP 96/52
[2016-12-27 11:00] VITALS: BP 95/68
[2016-12-27] MEDS ORDERED: ATIVAN INTE2 MG/1 ML PO (11:55)
[2016-12-27] MEDS ORDERED: HYOSCYAMINE0.125 M2 PO (11:55)
[2016-12-27] MEDS ORDERED: MORPHINE CON20 MG/M1 PO (11:55)
[2016-12-27 15:42] VITALS: BP 00/00
== END 2016-12-27 17:45 | disposition hospice, home (50) | DRG 291 ==
LOC: EME 10:39 → EDOF 14:15 → 4WEST 14:15 → 5EAST 12-25 17:27
PROVIDERS: Emergency Medicine; Internal Medicine; Internal Medicine Critical Care Medicine; Internal Medicine Pulmonary Disease; Obstetrics & Gynecology
PROC: 5A09357 Assistance with Respiratory Ventilation, Less than 24 Consecutive Hours, Continuous Positive Airway Pressure (ICD-10-PCS; 2016-12-23)
PROC: 5A09358 Assistance with Respiratory Ventilation, Less than 24 Consecutive Hours, Intermittent Positive Airway Pressure (ICD-10-PCS; 2016-12-23)
PROC: 0W9G3ZZ Drainage of Peritoneal Cavity, Percutaneous Approach (ICD-10-PCS; principal; 2016-12-27)
DX: I13.0 Hypertensive heart and chronic kidney disease with heart failure and stage 1 through stage 4 chronic kidney disease, or unspecified chronic kidney disease (principal); I50.9 Heart failure, unspecified; J96.21 Acute and chronic respiratory failure with hypoxia; J96.22 Acute and chronic respiratory failure with hypercapnia; N18.3 Chronic kidney disease, stage 3 (moderate); J44.0 Chronic obstructive pulmonary disease with (acute) lower respiratory infection; J18.9 Pneumonia, unspecified organism; R18.8 Other ascites; D50.9 Iron deficiency anemia, unspecified; E53.8 Deficiency of other specified B group vitamins; E55.9 Vitamin D deficiency, unspecified; E66.01 Morbid (severe) obesity due to excess calories; E78.5 Hyperlipidemia, unspecified; N17.9 Acute kidney failure, unspecified; E87.1 Hypo-osmolality and hyponatremia; E87.4 Mixed disorder of acid-base balance; T50.2X5A Adverse effect of carbonic-anhydrase inhibitors, benzothiadiazides and other diuretics, initial encounter; R73.9 Hyperglycemia, unspecified; F32.9 Major depressive disorder, single episode, unspecified; F41.9 Anxiety disorder, unspecified; G47.33 Obstructive sleep apnea (adult) (pediatric); G89.4 Chronic pain syndrome; I27.2 Other secondary pulmonary hypertension; I27.81 Cor pulmonale (chronic); I42.9 Cardiomyopathy, unspecified; I48.2 Chronic atrial fibrillation; I48.92 Unspecified atrial flutter; I73.9 Peripheral vascular disease, unspecified; I87.2 Venous insufficiency (chronic) (peripheral); I89.0 Lymphedema, not elsewhere classified; K21.9 Gastro-esophageal reflux disease without esophagitis; M10.9 Gout, unspecified; I95.9 Hypotension, unspecified; R79.1 Abnormal coagulation profile; T45.515A Adverse effect of anticoagulants, initial encounter; Z66 Do not resuscitate; Z51.5 Encounter for palliative care; Z79.01 Long term (current) use of anticoagulants; Z68.43 Body mass index [BMI] 50.0-59.9, adult; Z86.73 Personal history of transient ischemic attack (TIA), and cerebral infarction without residual deficits; Z87.891 Personal history of nicotine dependence; Z99.81 Dependence on supplemental oxygen; Z99.3 Dependence on wheelchair
CPT/HCPCS: 36600; 71010; 74020; 80048; 80048 91; 80053; 81003; 82533 91; 82803; 82948; 83036; 83605; 83735; 83880; 83935; 84100; 84300; 84484; 85025; 85025 91; 85027; 85610; 85730; 87040; 87070; 87075; 87086; 87205; 87641; 93005; 94003; 94640; 94640 76; 94760; 94799; 97530 GP; 99202; 99281; 99285; J1170; J1815; J1940; J2354; J2543; J7050; J7512; P9047; S0028